=== PATIENT | male | born 1940 | race Caucasian/White ===

== ENCOUNTER → 2020-05-02 14:43 | Outpatient (BNVA) | payer MEDICARE, SELFPAY | PROVIDERS: Visit Provider Urology | DX: Z13.89 Encounter for screening for other disorder (principal) | CPT/HCPCS: Q3014 ==

== ENCOUNTER → 2020-11-15 15:03 | Outpatient (BNVA) | payer MEDICARE, BC, SELFPAY | PROVIDERS: Visit Provider Urology | DX: N28.1 Cyst of kidney, acquired (principal); N40.1 Benign prostatic hyperplasia with lower urinary tract symptoms; N13.8 Other obstructive and reflux uropathy; R97.20 Elevated prostate specific antigen [PSA]; E78.5 Hyperlipidemia, unspecified; M81.0 Age-related osteoporosis without current pathological fracture; Z88.1 Allergy status to other antibiotic agents; Z88.8 Allergy status to other drugs, medicaments and biological substances | CPT/HCPCS: 51798; 99212 ==

== ENCOUNTER → 2021-05-16 13:31 | Outpatient (BNVA) | payer MEDICARE, BC, SELFPAY | PROVIDERS: PCP Internal Medicine; Visit Provider Urology | DX: N40.1 Benign prostatic hyperplasia with lower urinary tract symptoms (principal); N13.8 Other obstructive and reflux uropathy; N21.0 Calculus in bladder; I25.10 Atherosclerotic heart disease of native coronary artery without angina pectoris; E78.5 Hyperlipidemia, unspecified; Z88.1 Allergy status to other antibiotic agents; Z88.8 Allergy status to other drugs, medicaments and biological substances | CPT/HCPCS: 99212 ==

== ENCOUNTER → 2021-11-16 11:39 | Outpatient (BNVA) | payer MEDICARE, BC, SELFPAY | PROVIDERS: PCP Internal Medicine; Visit Provider Urology | DX: N28.1 Cyst of kidney, acquired (principal); N40.1 Benign prostatic hyperplasia with lower urinary tract symptoms; N13.8 Other obstructive and reflux uropathy; Z79.899 Other long term (current) drug therapy | CPT/HCPCS: Q3014 ==

== ENCOUNTER 2023-02-12 11:03 | Outpatient (AMB) | payer MEDICARE, BC, SELFPAY ==
--- NOTE | 2023-02-12 11:27 | A.OFFVIS_ITS ---
Intake Intake Visit Reasons: 1Y US/PSA(set) Intake Note: Patient is Present for Follow Up Urology Medication: Finasteride, Antibiotic Allergies: Erythromycin Blood Thinners: None PVR: Compliants: Allergies erythromycin base Allergy (Unknown, Verified 11/16/21 11:43) UNKNOWN mometasone furoate Allergy (Unknown, Verified 11/16/21 11:43) UNKNOWN HPI HPI Comments History of Present Illness Details Rico is a male. He is a patient of Dr Vines. He returns for further evaluation of the following urologic issues. - lower urinary tract symptoms - complex renal cyst Yearly review Accompanied by Low PVR PSA 1.7 Continues with finasteride every other day Imaging from November shows bilateral renal cyst with small stones bladder. Discussed GreenLight laser of prostate with bladder stone removal He is interested in moving ahead Elevated PSA/Abnormal MICHAELLE: Stable while on finasteride Current management is medication with 5AR M/W/F. Laboratory investigations include August 2014 4.1 PSAs have been in the range 2.4-3.4 over the past 5 years. TRUS biopsy has been offered previously. Oct 2015 4.2, free 23%, August 2016 2.0 - 09/16 US with 150cc prostate, 09/17 1.7, 10/19 US with 150cc prostate - bladder stones, 04/22 1.5, 10/21 1.8, 11/22 1.8 Symptoms include frequency, weak stream, x 2 Overall symptoms are moderate Therapeutic plan will be continued surveillance. Renal lesion: They present for reevaluation of renal mass characterized as, right side, simple cyst. The renal mass was diagnosed incidentally July 2013. Imaging included a CT (computed tomography) scan of the abdomen/pelvis July 2013 7.4 cm right-sided cyst with thickening of the wall and mild calcification , an MRI of the abdomen October 2014 no change in lesion size or characteristics multiple bilateral cysts. Dominant cyst on the right side - 10/16 a renal ultrasound , multiple bilateral cysts. Right kidney 5.6 cm, left kidney 4 cm. Thin septations - 04/19 , an MRI of the abdomen - bilateral cysts, no progression - 10/17 bilateral renal cysts. Right cyst 6 cm - 10/18 , a renal ultrasound - bilateral cysts - 10/19 , a renal ultrasound - large bilateral cysts - 04/23 renal bladder ultrasound, large bilateral renal cysts, bladder debris - 04/24 renal ultrasound large bilateral cysts up to 6 cm, bladder emptying Follow up imaging includes renal US. [facility] Medical History Osteoporosis Hyperlipidemia Coronary artery disease Gross hematuria Bladder stone Complex renal cyst Incomplete emptying of bladder Weak urinary stream Nocturia BPH w/o urinary obs/LUTS Elevated PSA Surgical History History of surgery History of surgical procedure Review of Systems Const Denies chills and Denies fever(s) Card Reports no additional complaints and Denies syncope Resp Denies cough GI Denies abdominal pain and Denies heartburn Reports as per HPI and Denies change in libido Neuro Denies syncope Psych Denies change in libido Endo Denies change in libido Physical Exam Const General: cooperative, healthy appearing, comfortable and no acute distress Orientation/consciousness: patient oriented x3 HEENT Face and sinus: Yes normal facial exam Mouth: moist mucous membranes Neck Neck: Yes normal visual inspection, Yes full ROM and Yes trachea midline Chest Chest palpation & inspection: normal inspection of the chest Resp Effort & Inspection: normal respiratory effort, able to speak in complete sentences and no respiratory distress GI Inspection: Yes normal to inspection Back/Spine/Pelvis Cervical Spine: normal cervical lordosis Thoracic/Lumbar Spine: thoracic and lumbar spine normal to inspection Skin General skin exam: no rashes or lesions noted Neuro General: patient oriented x3, gait normal, tone normal and moves all extremities Extrem General: Yes normal to inspection and Yes capillary refill normal Assessment & Plan Assessment & Plan (1) Bladder stone: Code(s): N21.0 - Calculus in bladder (2) BPH w urinary obs/LUTS: Code(s): N40.1 - Benign prostatic hyperplasia with lower urinary tract symptoms; N13.8 - Other obstructive and reflux uropathy Plan Six month follow-up PVR Orders: Orders AMB Urinalysis Automated 02/12/23 Z13.9 - Encounter for screening, unspecified AMB Post Void Residual by ultrasound 02/12/23 N13.8 - Other obstructive and reflux uropathy, N40.1 - Benign prostatic hyperplasia with lower urinary tract symptoms Patient Instructions: Imaging studies, laboratory and physical exam results were discussed and reviewed in detail. No major barriers to patient understanding were identified. An opportunity to ask questions regarding the treatment plan was provided. All questions were answered. The patient expressed understanding and agreement with the above treatment plan. The patient is aware they should contact our office by phone for worsening of their current condition or the appearance of new urologic symptoms. Compliance is encouraged with any medications and followup testing that is ordered. It is a privilege to participate in the urologic care of your patient. If you have any questions or concerns regarding treatment for the above conditions, or other urologic issues, please do not hesitate to contact me. The office telephone contact is [phone]. This note is constructed using voice recognition software. While every effort has been made to ensure accuracy supercharger mechanic errors may have been included. Yours sincerely, Dr Costa Whelan MD, [facility] - Urology Providers of Expert, Compassionate Care for the Genitourinary System Coding Level of Care Code Est Pt Level 4 (16460) Diagnoses Bladder stone N21.0 BPH w urinary obs/LUTS N40.1; N13.8
== END 2023-02-12 11:57 | disposition home or self-care (01) ==
PROVIDERS: Visit Provider Urology
DX: N21.0 Calculus in bladder (principal); N40.1 Benign prostatic hyperplasia with lower urinary tract symptoms; N13.8 Other obstructive and reflux uropathy
CPT/HCPCS: 99214

== ENCOUNTER → 2023-02-12 11:03 | Outpatient (BNVA) | payer MEDICARE, BC, SELFPAY | PROVIDERS: Visit Provider Urology | DX: N21.0 Calculus in bladder (principal); N40.1 Benign prostatic hyperplasia with lower urinary tract symptoms; N13.8 Other obstructive and reflux uropathy | CPT/HCPCS: 99212 ==

== ENCOUNTER 2023-08-13 11:55 | Outpatient (AMB) | payer MEDICARE, BC, SELFPAY ==
--- NOTE | 2023-08-13 12:00 | MHC.OFFVIS ---
Intake Visit Reasons: 6m/PVR Intake Note: Patient is Present for PVR/ Urology Med: Finasteride Antibiotic Allergy: Erythromycin Blood Thinner: None Todays PVR:18 Allergies erythromycin base Allergy (Unknown, Verified 08/13/23 12:05) UNKNOWN mometasone furoate Allergy (Unknown, Verified 08/13/23 12:05) UNKNOWN HPI Comments Details: Rico is a male. He is a patient of Dr Vines. He returns for further evaluation of the following urologic issues. - lower urinary tract symptoms - complex renal cyst Yearly review Accompanied by PVR 20 cc PSA 1.7 Continues with finasteride every other day Imaging from November shows bilateral renal cyst with small stones bladder. Discussed GreenLight laser of prostate with bladder stone removal He is interested in moving ahead Elevated PSA/Abnormal MICHAELLE: Stable while on finasteride Current management is medication with 5AR M/W/F. Laboratory investigations include August 2014 4.1 PSAs have been in the range 2.4-3.4 over the past 5 years. TRUS biopsy has been offered previously. Oct 2015 4.2, free 23%, August 2016 2.0 - 09/16 US with 150cc prostate, 09/17 1.7, 10/19 US with 150cc prostate - bladder stones, 04/22 1.5, 10/21 1.8, 11/22 1.8 Symptoms include frequency, weak stream, x 2 Overall symptoms are moderate Therapeutic plan will be continued surveillance. Renal lesion: They present for reevaluation of renal mass characterized as, right side, simple cyst. The renal mass was diagnosed incidentally July 2013. Imaging included a CT (computed tomography) scan of the abdomen/pelvis July 2013 7.4 cm right-sided cyst with thickening of the wall and mild calcification , an MRI of the abdomen October 2014 no change in lesion size or characteristics multiple bilateral cysts. Dominant cyst on the right side - 10/16 a renal ultrasound , multiple bilateral cysts. Right kidney 5.6 cm, left kidney 4 cm. Thin septations - 04/19 , an MRI of the abdomen - bilateral cysts, no progression - 10/17 bilateral renal cysts. Right cyst 6 cm - 10/18 , a renal ultrasound - bilateral cysts - 10/19 , a renal ultrasound - large bilateral cysts - 04/23 renal bladder ultrasound, large bilateral renal cysts, bladder debris - 04/24 renal ultrasound large bilateral cysts up to 6 cm, bladder emptying Follow up imaging includes renal US. [facility] Medical History Osteoporosis Hyperlipidemia Coronary artery disease Gross hematuria Bladder stone Complex renal cyst Incomplete emptying of bladder Weak urinary stream Nocturia BPH w/o urinary obs/LUTS Elevated PSA Surgical History History of surgery History of surgical procedure Review of Systems Const Denies chills and Denies fever(s) Card Reports no additional complaints and Denies syncope Resp Denies cough GI Denies abdominal pain and Denies heartburn Reports as per HPI and Denies change in libido Neuro Denies syncope Psych Denies change in libido Endo Denies change in libido Physical Exam Const General: cooperative, healthy appearing, comfortable and no acute distress Orientation/consciousness: patient oriented x3 HEENT Face and sinus: Yes normal facial exam Mouth: moist mucous membranes Neck Neck: Yes normal visual inspection, Yes full ROM and Yes trachea midline Chest Chest palpation & inspection: normal inspection of the chest Resp Effort & Inspection: normal respiratory effort, able to speak in complete sentences and no respiratory distress GI Inspection: Yes normal to inspection Back/Spine/Pelvis Cervical Spine: normal cervical lordosis Thoracic/Lumbar Spine: thoracic and lumbar spine normal to inspection Skin General skin exam: no rashes or lesions noted Neuro General: patient oriented x3, gait normal, tone normal and moves all extremities Extrem General: Yes normal to inspection and Yes capillary refill normal Office Procedures Post Void Residual Post Residual Void Post Void Residual (PVR): 18 [id number] Void Residual by ultrasound Assessment & Plan Assessment & Plan (1) Bladder stone: Code(s): N21.0 - Calculus in bladder Category: Medical (2) Complex renal cyst: Code(s): N28.1 - Cyst of kidney, acquired Category: Medical (3) BPH w urinary obs/LUTS: Code(s): N40.1 - Benign prostatic hyperplasia with lower urinary tract symptoms; N13.8 - Other obstructive and reflux uropathy Category: Medical Plan Six-month follow-up imaging Orders: Orders AMB Post Void Residual by ultrasound 08/13/23 N40.1 - Benign prostatic hyperplasia with lower urinary tract symptoms, N13.8 - Other obstructive and reflux uropathy US renal BI 6 Months N28.1 - Cyst of kidney, acquired Patient Instructions: Imaging studies, laboratory and physical exam results were discussed and reviewed in detail. No major barriers to patient understanding were identified. An opportunity to ask questions regarding the treatment plan was provided. All questions were answered. The patient expressed understanding and agreement with the above treatment plan. The patient is aware they should contact our office by phone for worsening of their current condition or the appearance of new urologic symptoms. Compliance is encouraged with any medications and followup testing that is ordered. It is a privilege to participate in the urologic care of your patient. If you have any questions or concerns regarding treatment for the above conditions, or other urologic issues, please do not hesitate to contact me. The office telephone contact is [phone]. This note is constructed using voice recognition software. While every effort has been made to ensure accuracy project consultant errors may have been included. Yours sincerely, Dr Costa Whelan MD, [facility] - Urology Providers of Expert, Compassionate Care for the Genitourinary System Coding Level of Care Code Est Pt Level 3 (33859) Diagnoses Bladder stone N21.0 Complex renal cyst N28.1 BPH w urinary obs/LUTS N40.1; N13.8 CPT Codes Post Residual Void - PVR CPT Code: [id number] Void Residual by ultrasound ([id number])
== END 2023-08-13 12:27 | disposition home or self-care (01) ==
PROVIDERS: PCP Internal Medicine; Visit Provider Urology
DX: N21.0 Calculus in bladder (principal); N28.1 Cyst of kidney, acquired; N40.1 Benign prostatic hyperplasia with lower urinary tract symptoms; N13.8 Other obstructive and reflux uropathy
CPT/HCPCS: 99213

== ENCOUNTER → 2023-08-13 11:55 | Outpatient (BNVA) | payer MEDICARE, BC, SELFPAY | PROVIDERS: PCP Internal Medicine; Visit Provider Urology | DX: N40.1 Benign prostatic hyperplasia with lower urinary tract symptoms (principal); N13.8 Other obstructive and reflux uropathy; N28.1 Cyst of kidney, acquired | CPT/HCPCS: 51798; 99212 ==

== ENCOUNTER 2024-02-10 11:48 | Outpatient (AMB) | payer MEDICARE, BC, SELFPAY ==
--- NOTE | 2024-02-10 11:49 | A.OFFVIS_ITS ---
Intake Visit Reasons: 6m/US(set) Intake Note: Patient is present for 6M/US Urology Medication:FINASTREIDE Antibiotic Allergy:ERYTHROMYCIN Blood Thinner:NONE Gas Engine Operator Compressors Required: No Allergies erythromycin base Allergy (Unknown, Verified 02/10/24 11:49) UNKNOWN mometasone furoate Allergy (Unknown, Verified 02/10/24 11:49) UNKNOWN HPI Comments Details: Rico is a male. He is a patient of Dr Vines. He returns for further evaluation of the following urologic issues. - lower urinary tract symptoms - complex renal cyst Yearly review Accompanied by Discussed renal cyst Remain stable but large Thickened bladder wall Previous discussion regarding bladder outlet procedure UA 1+ blood Repeat imaging in UA in six-month Elevated PSA/Abnormal MICHAELLE: Stable while on finasteride Current management is medication with 5AR M/W/F. Laboratory investigations include August 2014 4.1 PSAs have been in the range 2.4-3.4 over the past 5 years. TRUS biopsy has been offered previously. Oct 2015 4.2, free 23%, August 2016 2.0 - 09/16 US with 150cc prostate, 09/17 1.7, 10/19 US with 150cc prostate - bladder stones, 04/22 1.5, 10/21 1.8, 11/22 1.8 Symptoms include frequency, weak stream, x 2 Overall symptoms are moderate Therapeutic plan will be continued surveillance. Renal lesion: They present for reevaluation of renal mass characterized as, right side, simple cyst. The renal mass was diagnosed incidentally July 2013. Imaging included a CT (computed tomography) scan of the abdomen/pelvis July 2013 7.4 cm right-sided cyst with thickening of the wall and mild calcification , an MRI of the abdomen October 2014 no change in lesion size or charac teristics multiple bilateral cysts. Dominant cyst on the right side - 10/16 a renal ultrasound , multiple bilateral cysts. Right kidney 5.6 cm, left kidney 4 cm. Thin septations - 04/19 , an MRI of the abdomen - bilateral cysts, no progression - 10/17 bilateral renal cysts. Right cyst 6 cm - 10/18 , a renal ultrasound - bilateral cysts - 10/19 , a renal ultrasound - large bilateral cysts - 04/23 renal bladder ultrasound, large bilateral renal cysts, bladder debris - 04/24 renal ultrasound large bilateral cysts up to 6 cm, bladder emptying - 12/24 RENAL ULTRASOUND BILATERAL CYSTS, EMPTY BLADDER, THICKENED BLADDER WALL WITH TRABECULATION Follow up imaging includes renal US. [facility] Medical History Osteoporosis Hyperlipidemia Coronary artery disease Gross hematuria Bladder stone Complex renal cyst Incomplete emptying of bladder Weak urinary stream Nocturia BPH w/o urinary obs/LUTS Elevated PSA Surgical History History of surgery History of surgical procedure Review of Systems Const Denies chills and Denies fever(s) Card Reports no additional complaints and Denies syncope Resp Denies cough GI Denies abdominal pain and Denies heartburn Reports as per HPI and Denies change in libido Neuro Denies syncope Psych Denies change in libido Endo Denies change in libido Physical Exam Const General: cooperative, healthy appearing, comfortable and no acute distress Orientation/consciousness: patient oriented x3 HEENT Face and sinus: Yes normal facial exam Mouth: moist mucous membranes Neck Neck: Yes normal visual inspection, Yes full ROM and Yes trachea midline Chest Chest palpation & inspection: normal inspection of the chest Resp Effort & Inspection: normal respiratory effort, able to speak in complete sentences and no respiratory distress GI Inspection: Yes normal to inspection Back/Spine/Pelvis Cervical Spine: normal cervical lordosis Thoracic/Lumbar Spine: thoracic and lumbar spine normal to inspection Skin General skin exam: no rashes or lesions noted Neuro General: patient oriented x3, gait normal, tone normal and moves all extremities Extrem General: Yes normal to inspection and Yes capillary refill normal Results AMB Urinalysis, Automated UA Leukoctes 0 Magen/uL Last Edit by NAE Lanier on 02/10/24 12:03 UA Nitrite Negative Last Edit by NAE Lanier on 02/10/24 12:03 UA Urobilinogen 0.2 mg/dL Last Edit by NAE Lanier on 02/10/24 12:0 3 UA Protein 30 mg/dL Last Edit by NAE Lanier on 02/10/24 12:03 UA pH 6.0 Last Edit by NAE Lanier on 02/10/24 12:03 UA Blood 25 Pete/uL Last Edit by NAE Lanier on 02/10/24 12:03 UA Specific [place] 1.020 Last Edit by Sivan Morrison CCMA on 02/10/24 12: 03 UA Ketone Negative Last Edit by NAE Lanier on 02/10/24 12:03 UA Bilirubin 0 mg/dL Last Edit by NAE Lanier on 02/10/24 12:03 UA Glucose 0 mg/dL Last Edit by NAE Lanier on 02/10/24 12:03 Results Reviewed Results Reviewed: Laboratory Last Values Urine pH (Auto) 6.0 02/10/24 12:02 Specific [place] (Auto) 1.020 02/10/24 12:02 Urine Protein (Auto) 30 mg/dL 02/10/24 12:02 Glucose (UA)(Auto) 0 mg/dL 02/10/24 12:02 Urine Ketones (Auto) Negative 02/10/24 12:02 Urine Blood (Auto) 25 Pete/uL 02/10/24 12:02 Urine Nitrite (Auto) Negative 02/10/24 12:02 Urine Bilirubin (Auto) 0 mg/dL 02/10/24 12:02 Urine Urobilinogen (Auto) 0.2 mg/dL 02/10/24 12:02 Leukocyte Esterase (Auto) 0 Magen/uL 02/10/24 12:02 Assessment & Plan Assessment & Plan (1) Complex renal cyst: Code(s): N28.1 - Cyst of kidney, acquired Category: Medical Plan Six-month follow-up renal ultrasound Orders: Orders AMB Urinalysis Automated 02/10/24 Z13.9 - Encounter for screening, unspecified US renal BI 6 Months N28.1 - Cyst of kidney, acquired Patient Instructions: Imaging studies, laboratory and physical exam results were discussed and reviewed in detail. No major barriers to patient understanding were identified. An opportunity to ask questions regarding the treatment plan was provided. All questions were answered. The patient expressed understanding and agreement with the above treatment plan. The patient is aware they should contact our office by phone for worsening of their current condition or the appearance of new urologic symptoms. Compliance is encouraged with any medications and followup testing that is ordered. It is a privilege to participate in the urologic care of your patient. If you have any questions or concerns regarding treatment for the above conditions, or other urologic issues, please do not hesitate to contact me. The office telephone contact is [phone]. This note is constructed using voice recognition software. While every effort has been made to ensure accuracy product safety head errors may have been included. Yours sincerely, Dr Costa Whelan MD, [facility] - Urology Providers of Expert, Compassionate Care for the Genitourinary System Coding Level of Care Code Est Pt Level 4 (49788) Diagnoses Complex renal cyst N28.1
== END 2024-02-10 13:03 | disposition home or self-care (01) ==
PROVIDERS: PCP Internal Medicine; Visit Provider Urology
DX: N28.1 Cyst of kidney, acquired (principal)
CPT/HCPCS: 99214

== ENCOUNTER → 2024-02-10 11:48 | Outpatient (BNVA) | payer MEDICARE, BC, SELFPAY | PROVIDERS: PCP Internal Medicine; Visit Provider Urology | DX: N28.1 Cyst of kidney, acquired (principal) | CPT/HCPCS: 81003; 99212 ==

== ENCOUNTER 2024-08-10 11:36 | Outpatient (AMB) | payer MEDICARE, BC, SELFPAY ==
--- NOTE | 2024-08-10 11:38 | MHC.OFFVIS ---
Intake Visit Reasons: 6m/US/UA Intake Note: Patient is present for 6M/US/UA Urology Medication:FINASTERIDE Antibiotic Allergy:ERYTHROMYCIN Blood Thinner:NONE TODAY'SA PVR:123ML'S Forensic Specialist Required: No Allergies erythromycin base Allergy (Unknown, Verified 08/10/24 11:58) UNKNOWN mometasone furoate Allergy (Unknown, Verified 08/10/24 11:58) UNKNOWN HPI Comments Details: Rico is a male. He is a patient of Dr Vines. He returns for further evaluation of the following urologic issues. - lower urinary tract symptoms - complex renal cyst Six-month follow-up PVR remains elevated 160 Discussed renal cyst Remain stable but large Thickened bladder wall Previous discussion regarding bladder outlet procedure Provided printed information to Recent ultrasound prostate 135 cc Elevated PSA/Abnormal MICHAELLE: Stable while on finasteride Current management is medication with 5AR M/W/F. Laboratory investigations include August 2014 4.1 PSAs have been in the range 2.4-3.4 over the past 5 years. TRUS biopsy has been offered previously. Oct 2015 4.2, free 23%, August 2016 2.0 - 09/16 US with 150cc prostate, 09/17 1.7, 10/19 US with 150cc prostate - bladder stones, 04/22 1.5, 10/21 1.8, 11/22 1.8 Symptoms include frequency, weak stream, x 2 Overall symptoms are moderate Therapeutic plan will be continued surveillance. Renal lesion: They present for reevaluation of renal mass characterized as, right side, simple cyst. The renal mass was diagnosed incidentally July 2013. Imaging included a CT (computed tomography) scan of the abdomen/pelvis July 2013 7.4 cm right-sided cyst with thickening of the wall and mild calcification , an MRI of the abdomen October 2014 no change in lesion size or characteristics multiple bilateral cysts. Dominant cyst on the right side - 10/16 a renal ultrasound , multiple bilateral cysts. Right kidney 5.6 cm, left kidney 4 cm. Thin septations - 04/19 , an MRI of the abdomen - bilateral cysts, no progression - 10/17 bilateral renal cysts. Right cyst 6 cm - 10/18 , a renal ultrasound - bilateral cysts - 10/19 , a renal ultrasound - large bilateral cysts - 04/23 renal bladder ultrasound, large bilateral renal cysts, bladder debris - 04/24 renal ultrasound large bilateral cysts up to 6 cm, bladder emptying - 12/24 RENAL ULTRASOUND BILATERAL CYSTS, EMPTY BLADDER, THICKENED BLADDER WALL WITH TRABECULATION - 08/25 renal ultrasound stable bilateral cysts up to 8 cm, 135 g prostate Follow up imaging includes renal US. PENDING SALE TO [facility] Medical History Osteoporosis Hyperlipidemia Coronary artery disease Gross hematuria Bladder stone Complex renal cyst Incomplete emptying of bladder Weak urinary stream Nocturia BPH w/o urinary obs/LUTS Elevated PSA Surgical History History of surgery History of surgical procedure Review of Systems Const Denies chills and Denies fever(s) Card Reports no additional complaints and Denies syncope Resp Denies cough GI Denies abdominal pain and Denies heartburn Reports as per HPI and Denies change in libido Neuro Denies syncope Psych Denies change in libido Endo Denies change in libido Physical Exam Const General: cooperative, healthy appearing, comfortable and no acute distress Orientation/consciousness: patient oriented x3 HEENT Face and sinus: Yes normal facial exam Mouth: moist mucous membranes Neck Neck: Yes normal visual inspection, Yes full ROM and Yes trachea midline Chest Chest palpation & inspection: normal inspection of the chest Resp Effort & Inspection: normal respiratory effort, able to speak in complete sentences and no respiratory distress GI Inspection: Yes normal to inspection Back/Spine/Pelvis Cervical Spine: normal cervical lordosis Thoracic/Lumbar Spine: thoracic and lumbar spine normal to inspection Skin General skin exam: no rashes or lesions noted Neuro General: patient oriented x3, gait normal, tone normal and moves all extremities Extrem General: Yes normal to inspection and Yes capillary refill normal Assessment & Plan Assessment & Plan (1) BPH w urinary obs/LUTS: Code(s): N40.1 - Benign prostatic hyperplasia with lower urinary tract symptoms; N13.8 - Other obstructive and reflux uropathy Category: Medical (2) Complex renal cyst: Code(s): N28.1 - Cyst of kidney, acquired Category: Medical Plan Discussed GreenLight laser He will contact us Orders: Orders AMB Urinalysis Automated Today Z13.9 - Encounter for screening, unspecified Patient Instructions: This note is constructed using voice recognition software. While every effort has been made to ensure accuracy environmental aide errors may have been included. Imaging studies, laboratory and physical exam results were discussed and reviewed in detail. No major barriers to patient understanding were identified. An opportunity to ask questions regarding the treatment plan was provided. All questions were answered. The patient expressed understanding and agreement with the above treatment plan. The patient is aware they should contact our office by phone for worsening of their current condition or the appearance of new urologic symptoms. Compliance is encouraged with any medications and followup testing that is ordered. It is a privilege to participate in the urologic care of your patient. If you have any questions or concerns regarding treatment for the above conditions, or other urologic issues, please do not hesitate to contact me. The office telephone contact is [phone]. Sincerely, Dr Costa Whelan MD, TUCKER [facility] - Urology Compassionate Specialist Care for the Genitourinary System Coding Level of Care Code Est Pt Level 3 (24818) Complex EM visit Add On G2211 Diagnoses BPH w urinary obs/LUTS N40.1; N13.8 Complex renal cyst N28.1
== END 2024-08-10 12:21 | disposition home or self-care (01) ==
LOC: HO.HUSH 11:37
PROVIDERS: PCP Internal Medicine; Visit Provider Urology
DX: N40.1 Benign prostatic hyperplasia with lower urinary tract symptoms (principal); N13.8 Other obstructive and reflux uropathy; N28.1 Cyst of kidney, acquired; Z13.9 Encounter for screening, unspecified
CPT/HCPCS: 99213; G2211

== ENCOUNTER → 2024-08-10 11:36 | Outpatient (BNVA) | payer MEDICARE, BC, SELFPAY | PROVIDERS: PCP Internal Medicine; Visit Provider Urology | DX: N40.1 Benign prostatic hyperplasia with lower urinary tract symptoms (principal); N13.8 Other obstructive and reflux uropathy; N28.1 Cyst of kidney, acquired | CPT/HCPCS: 81003; 99212 ==

== ENCOUNTER 2025-01-19 13:46 | Outpatient (AMB) | payer MEDICARE, BC, SELFPAY ==
--- OUTSIDE RECORDS SUMMARY | 2024-11-10 03:29 | XMS_ITS ---
Author Organization [facility] Address [address], [place] [phone] Care Team Providers Care Yard Spotter Name Role Phone OLU DOOLEY Primary Care Provider REASON FOR VISIT Requesting Order Encounters Encounter Location Date Provider Diagnosis [facility] [address] [place] [address] 11/10/2024 OLU DOOLEY PLAN OF TREATMENT Next Appt Details Provider Name:OLU Cavanaugh, 03/31/2025 01:00:00 PM, [address] [place], [address],
--- OUTSIDE RECORDS SUMMARY | 2024-11-15 06:55 | XMS_ITS ---
Author Organization [facility] Address [address] [place], [place] [id number] Care Team Providers Care Civil Process Server Name Role Phone OLU DOOLEY Primary Care Provider REASON FOR VISIT hematuria Encounters Encounter Location Date Provider Diagnosis [facility] [address] [place] [address] 11/15/2024 OLU DOOLEY PLAN OF TREATMENT Next Appt Details Provider Name:OLU Cavanaugh, 03/31/2025 01:00:00 PM, [address] [place], [address],
--- OUTSIDE RECORDS SUMMARY | 2024-11-15 09:46 | XMS_ITS ---
Author Organization [facility] Address [address] [place], [place] [id number] Care Team Providers Care Apparel Sales Associate Name Role Phone OLU DOOLEY Primary Care Provider REASON FOR VISIT labs/urine Encounters Encounter Location Date Provider Diagnosis [address] [address] 11/15/2024 OLU DOOLEY Gross hematuria R31.0 ASSESSMENTS Encounter Date Diagnosis Assessment Notes Treatment Notes Treatment Clinical Notes Section Notes 11/15/2024 Gross hematuria (ICD-10 - R31.0) PLAN OF TREATMENT Future Test Test Name Order Date CBC With Differential/[id number] Comp. Metabolic Panel [id number] 2024 Next Appt Details Provider Name:OLU Cavanaugh, 03/31/2025 01:00:00 PM, [address] [place], [address],
--- OUTSIDE RECORDS SUMMARY | 2024-11-15 10:00 | XMS_ITS ---
Author Organization [facility] Address [address] [place], [place] [phone] Care Team Providers Care Sap Grc Security Name Role Phone OLU DOOLEY Primary Care Provider [phone] REASON FOR VISIT u/s results Encounters Encounter Location Date Provider Diagnosis [facility] [address] [place] [address] 11/15/2024 OLU DOOLEY PLAN OF TREATMENT Next Appt Details Provider Name:OLU Cavanaugh, 03/31/2025 01:00:00 PM, [address] [place], [address],
--- OUTSIDE RECORDS SUMMARY | 2024-11-15 11:59 | XMS_ITS ---
Author Organization [facility] Address [address] [place], [place] [phone] Care Team Providers Care Director Of Pulmonary Unit Name Role Phone OLU DOOLEY Primary Care Provider [phone] Encounters Encounter Location Date Provider Diagnosis [address] [address] 11/15/2024 OLU DOOLEY PLAN OF TREATMENT Next Appt Details Provider Name:OLU Cavanaugh, 03/31/2025 01:00:00 PM, [address] [place], [address],
--- OUTSIDE RECORDS SUMMARY | 2024-11-16 11:10 | XMS_ITS ---
Author Organization [facility] Address [address] [place], [place] [phone] Care Team Providers Care Customs Director Name Role Phone OLU DOOLEY Primary Care Provider Encounters Encounter Location Date Provider Diagnosis [address] [address] 11/16/2024 OLU DOOLEY Essential (primary) hypertension I10 ASSESSMENTS Encounter Date Diagnosis Assessment Notes Treatment Notes Treatment Clinical Notes Section Notes 11/16/2024 Essential (primary) hypertension (ICD-10 - I10) PLAN OF TREATMENT Next Appt Details Provider Name:OLU Cavanaugh, 03/31/2025 01:00:00 PM, [address] [place] [address], [address],
--- OUTSIDE RECORDS SUMMARY | 2024-11-30 07:45 | XMS_ITS ---
Author Organization [facility] Address [address] [place], [place] [phone] Care Team Providers Care Metal Hanging Helper Name Role Phone OLU DOOLEY Primary Care Provider MEDICATIONS Medication SIG (Take, Route, Frequency, Duration) Notes Start Date End Date Status Sodium Polystyrene Sulfonate 15 GM/60ML 60 mL Combination Once a day 11/30/2024 Active Encounters Encounter Location Date Provider Diagnosis [facility] [address] [place] [address] 11/30/2024 OLU DOOLEY Essential (primary) hypertension I10 ASSESSMENTS Encounter Date Diagnosis Assessment Notes Treatment Notes Treatment Clinical Notes Section Notes 11/30/2024 Essential (primary) hypertension (ICD-10 - I10) PLAN OF TREATMENT Medication Medication Name Sig Start Date Stop Date Notes Sodium Polystyrene Sulfonate 15 GM/60ML 60 mL Combination Once a day 11/30/2024 Next Appt Details Provider Name:OLU Cavanaugh, 03/31/2025 01:00:00 PM, [address] [place], [address],
--- OUTSIDE RECORDS SUMMARY | 2024-11-30 08:26 | XMS_ITS ---
Author Organization [facility] Address [address] [place], [place] [phone] Care Team Providers Care Textile Coating Machine Operator Name Role Phone OLU DOOLEY Primary Care Provider [phone] REASON FOR VISIT celebrex Encounters Encounter Location Date Provider Diagnosis [facility] [address] [place] [address] 11/30/2024 OLU DOOLEY PLAN OF TREATMENT Next Appt Details Provider Name:OLU Cavanaugh, 03/31/2025 01:00:00 PM, [address] [place], [address],
--- OUTSIDE RECORDS SUMMARY | 2024-12-04 05:00 | XMS_ITS ---
Author Organization [facility] Address [address] [place], [place] [phone] Care Team Providers Care Education Faculty Member Name Role Phone OLU DOOLEY Primary Care Provider CLINIC, [facility] Unavailable Unavailable REASON FOR VISIT N/27 Encounters Encounter Location Date Provider Diagnosis [facility] [address] [place] [address] 12/04/2024 [facility] CLINIC PLAN OF TREATMENT Next Appt Details Provider Name:OLU Cavanaugh, 03/31/2025 01:00:00 PM, [address] [place], [address],
--- OUTSIDE RECORDS SUMMARY | 2024-12-27 11:11 | XMS_ITS ---
Author Organization [facility] Address [address] [place], [place] [phone] Care Team Providers Care Sleever Name Role Phone OLU DOOLEY Primary Care Provider REASON FOR VISIT CT scan with iv Encounters Encounter Location Date Provider Diagnosis [address] [address] 12/27/2024 OLU DOOLEY PLAN OF TREATMENT Next Appt Details Provider Name:OUL Cavanaugh, 03/31/2025 01:00:00 PM, [address] [place], [address],
--- NOTE | 2025-01-19 14:01 | A.OFFVIS_ITS ---
Intake Visit Reasons: discuss procedure Intake Note: Reason for Visit: Telephone Discussion on Greenlight Procedure Urology Meds: Finasteride Blood Thinners: None Imaging: Renal Ultrasound 11/16/24 Labs: None Wind Turbine Mechanical Engineer Required: No Allergies erythromycin base Allergy (Unknown, Verified 01/19/25 14:04) UNKNOWN mometasone furoate Allergy (Unknown, Verified 01/19/25 14:04) UNKNOWN HPI Comments Details: Rico is a male. He is a patient of Dr Vines. He returns for further evaluation of the following urologic issues. - lower urinary tract symptoms - complex renal cyst Telemedicine Evaluation 15 min Consultation BiOxyDyn Heather Video Moving ahead with GreenLight laser Repeat imaging shows stable renal cysts Thickened bladder wall Prostate measured at 100 cc Discussed risks and benefits of surgery Elevated PSA/Abnormal MICHAELLE: Stable while on finasteride Current management is medication with 5AR M/W/F. Laboratory investigations include August 2014 4.1 PSAs have been in the range 2.4-3.4 over the past 5 years. TRUS biopsy has been offered previously. Oct 2015 4.2, free 23%, August 2016 2.0 - 09/16 US with 150cc prostate, 09/17 1.7, 10/19 US with 150cc prostate - bladder stones, 04/22 1.5, 10/21 1.8, 11/22 1.8 Symptoms include frequency, weak stream, x 2 Overall symptoms are moderate Therapeutic plan will be continued surveillance. Renal lesion: They present for reevaluation of renal mass characterized as, right side, simple cyst. The renal mass was diagnosed incidentally July 2013. Imaging included a CT (computed tomography) scan of the abdomen/pelvis July 2013 7.4 cm right-sided cyst with thickening of the wall and mild calcification , an MRI of the abdomen October 2014 no change in lesion size or characteristics multiple bilateral cysts. Dominant cyst on the right side - 10/16 a renal ultrasound , multiple bilateral cysts. Right kidney 5.6 cm, left kidney 4 cm. Thin septations - 04/19 , an MRI of the abdomen - bilateral cysts, no progression - 10/17 bilateral renal cysts. Right cyst 6 cm - 10/18 , a renal ultrasound - bilateral cysts - 10/19 , a renal ultrasound - large bilateral cysts - 04/23 renal bladder ultrasound, large bilateral renal cysts, bladder debris - 04/24 renal ultrasound large bilateral cysts up to 6 cm, bladder emptying - 12/24 RENAL ULTRASOUND BILATERAL CYSTS, EMPTY BLADDER, THICKENED BLADDER WALL WITH TRABECULATION - 08/25 renal ultrasound stable bilateral cysts up to 8 cm, 135 g prostate Follow up imaging includes renal US. [facility] Medical History Osteoporosis Hyperlipidemia Coronary artery disease Gross hematuria Bladder stone Complex renal cyst Incomplete emptying of bladder Weak urinary stream Nocturia BPH w/o urinary obs/LUTS Elevated PSA Surgical History History of surgery History of surgical procedure Review of Systems Const Denies chills and Denies fever(s) Card Reports no additional complaints and Denies syncope Resp Denies cough GI Denies abdominal pain and Denies heartburn Reports as per HPI and Denies change in libido Neuro Denies syncope Psych Denies change in libido Endo Denies change in libido Physical Exam Const General: cooperative, healthy appearing, comfortable and no acute distress Orientation/consciousness: patient oriented x3 HEENT Face and sinus: Yes normal facial exam Mouth: moist mucous membranes Neck Neck: Yes normal visual inspection, Yes full ROM and Yes trachea midline Chest Chest palpation & inspection: normal inspection of the chest Resp Effort & Inspection: normal respiratory effort, able to speak in complete sentences and no respiratory distress GI Inspection: Yes normal to inspection Back/Spine/Pelvis Cervical Spine: normal cervical lordosis Thoracic/Lumbar Spine: thoracic and lumbar spine normal to inspection Skin General skin exam: no rashes or lesions noted Neuro General: patient oriented x3, gait normal, tone normal and moves all extremities Extrem General: Yes normal to inspection and Yes capillary refill normal Telehealth Telehealth Telehealth Platform: BiOxyDyn Location of provider rendering services: practice address Location of patient: address on file Patient Identification confirmed using: Name, : Yes Telehealth method: video Patient verbally consented to treatment: Yes Patient verbally consented to billing insurance company: Yes Patient informed of any privacy concerns related to visit: Yes Minutes spent on Phone/Video with Pt.: 15 Assessment & Plan Assessment & Plan (1) BPH w urinary obs/LUTS: Code(s): N40.1 - Benign prostatic hyperplasia with lower urinary tract symptoms; N13.8 - Other obstructive and reflux uropathy Category: Medical Plan We discussed the nature of the decision and reasonable options for performing a prostate intervention. Interventions include TURP, GreenLight laser enucleation of the prostate, GreenLight laser ablation of the prostate, transurethral incision of the prostate, and I-Tend prostate procedure. Options such as medical therapy were discussed. The relative uncertainties and benefits related to each alternate procedure were adequately discussed. General surgical risks including, but not limited to, pain, bleeding, infection, myocardial infarction, pulmonary embolus, deep vein thrombosis and cerebrovascular accident which may result in further hospitalization were discussed. Full disclosure of the procedure as well as all major risks, benefits and complications were discussed including but not limited to damage to the urethra or bladder neck, recurrent BPH, retrograde ejaculation, bladder infection, urge, de ben frequency, incomplete emptying, dysuria, remote chance of erectile dysfunction, epididymitis, and meatal stenosis. The success rate of the procedure was discussed. Success of the procedure in the short-term does not necessarily guarantee that long-term success will be maintained. Suitable follow up will need to be maintained. The patient showed understanding of discussion. An opportunity was provided for questions to be answered and wishes to proceed with the following procedure. - GreenLight laser prostate Patient Instructions: This note is constructed using voice recognition software. While every effort has been made to ensure accuracy sales order clerk errors may have been included. Imaging studies, laboratory and physical exam results were discussed and reviewed in detail. No major barriers to patient understanding were identified. An opportunity to ask questions regarding the treatment plan was provided. All questions were answered. The patient expressed understanding and agreement with the above treatment plan. The patient is aware they should contact our office by phone for worsening of their current condition or the appearance of new urologic symptoms. Compliance is encouraged with any medications and followup testing that is ordered. It is a privilege to participate in the urologic care of your patient. If you have any questions or concerns regarding treatment for the above conditions, or other urologic issues, please do not hesitate to contact me. The office telephone contact is [phone]. Sincerely, Dr Costa Whelan MD, TUCKER [facility] - Urology Compassionate Specialist Care for the Genitourinary System Coding Level of Care Code Tele Est Pt Level 3 (43588) Complex EM visit Add On G2211 Diagnoses BPH w urinary obs/LUTS N40.1; N13.8
--- OUTSIDE RECORDS SUMMARY | 2025-01-20 01:52 | XMS_ITS | Data Portability ---
Author Organization [place] - [facility], Allergy Address [address] [address] Care Team Providers Care Project Management Advisor Name Role Phone OLU DOOLEY Primary Care Provider OLU DOOLEY Referring Provider OLU DOOLEY Primary Care Provider Assessment Encounter Date Assessment Date Assessment LastModified by Organization Details LastModified Time 10/15/2024 10/15/2024 84-year-old male presents today for hearing loss. Ear exam is normal. Audiometric testing showed moderate loss in the high frequencies with borderline hearing in the speech frequencies. I counseled him that I do not typically recommend amplification at his level of hearing, but if he is motivated to try it would be reasonable to do so. [email or web address] Not available 10/15/2024 11:30:15 Plan of Treatment Reminders Order Date Submit Date Provider Last Modified By Organization Details Last Modified Time Details Appointments Hearing Test 2025 10:30A M Hearing Test Not available Not available Not available Establish ed 15 2025 10:45A M KARLA KEITA MD Not available Not available Not available Lab None recorded. Referral None recorded. Procedures None recorded. Surgeries None recorded. Imaging None recorded. Medication Orders None recorded. Patient TargetsNo targets recorded. Patient InstructionsNo instructions recorded. Reason for Referral None Reported. Results Created Date Observation Date Name Description Value Unit Range Abnormal Flag Note LastModifiedBy Organization Detail LastModifiedTime 10/21/19 24 audio gram No observ ation record ed. [email or web address] Not Available 10/02 09:23:03 10/22/19 24 04/05/2022 imagi ng/di agnos tic resul t No observ ation record ed. [email or web address] Not Available 12:06:04 10/22/19 24 04/05/2022 audio gram No observ ation record ed. [email or web address] Not Available 12:06:18 12/07/19 25 audio gram No observ ation record ed. [email or web address] Not Available 2024 17:50:41 Result Notes None recorded. 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 Postnasal drip; Note: Date Diagnosed : 08/02/2016 2:20 PM (R09.82) Not Available [facility] 4 03:00:11 Disorder of smell 299891917 Active 2016 Other disturban kenzie of smell and taste; Note: Date Diagnosed : 08/02/2016 2:16 PM (R43.8) Not Available [facility] 4 03:00:10 Disorder of taste 372842506 Active 2016 Other disturban kenzie of smell and taste; Note: Date Diagnosed : 08/02/2016 2:16 PM (R43.8) Not Available [facility] 4 03:00:10 Disorder of left ear 00123312260 90567 Active 2017 Unspecifi ed disorder of left ear; Note: Date Diagnosed : 05/19/2017 11:44 AM (H93.92) Not Available [facility] 4 03:00:10 Bleeding from nose 306762407 Active 2021 Epistaxis ; Note: Date Diagnosed : 05/02/2021 2:35 PM (R04.0) Not Available [facility] 4 03:00:09 Sensorine ural hearing loss of bilateral ears 120713318 Active 2022 Sensorine ural hearing loss, bilateral ; Note: Date Diagnosed : 04/05/2022 11:03 AM (H90.3) Not Available [facility] 4 03:00:10 Problem Notes None recorded. Procedures Surgical History Date Name Laterality Status Provider Name and Address Organization Details Recorded Time 10/15/2024 Air & Speech Audio with Tymps - 56623, 74305 & 89312 completed FLAKITO ARMENTA [place], [facility] [address] [address], [place], [address], [place] - [facility] 10/15/2024 11:12:55 10/16/2023 Air & Speech Audio with Tymps - 57124, 30436 & 63248 completed Jazmine Bernstein [place] - [facility] 10/16/2023 09:39:25 Imaging Results None recorded. Procedure Notes None recorded. Medical Equipment None Reported. Allergies No known drug allergies Medications Name Sig Start Date Stop Date Status Note LastModified by Organization Details LastModified Time celecoxib 200 mg capsule TAKE 1 CAPSULE BY MOUTH TWICE DAILY active Not Available Not Available No t Available doxycycli ne hyclate 100 mg capsule TAKE 1 CAPSULE BY MOUTH TWICE DAILY 10/15 completed Not Available Not Available Not Available Ativan 1 mg tablet 08/02 completed Medicati on ID: [id number] B rand Name: Ativan S end Method: E-Prescr ibed Sub s Allowed: subs OK Speci al Instruct ion: Take 1 tab po 30 min prior to procedur e, may repeat X 1 as needed M chaim Ortiz Name: Ativan Not Available Not Available Not Available Zyrtec 10 mg tablet Take 1 tablet every day by oral route. 10/15 completed Not Available Not Available Not Available simvastat in 40 mg tablet TAKE 1 TABLET BY MOUTH AT BEDTIME active Not Available Not Available No t Available metoprolo l tartrate 50 mg tablet TAKE 1 TABLET BY MOUTH TWICE DAILY active Not Available Not Available No t Available nitroglyc bia 0.4 mg sublingua l tablet active Not Available Not Available Not Available betametha sone dipropion ate 0.05 % topical cream APPLY TOPICALL Y TO THE AFFECTED AREAS ON CHEST AND ABDOMEN TWICE DAILY NEEDED FOR FLARES 10/15 completed Not Available Not Available Not Available omeprazol e 20 mg capsule,d elayed release TAKE 1 CAPSULE BY MOUTH EVERY DAY active Not Available Not Available No t Available alclometa sone 0.05 % topical ointment 08/02 completed Medicati on ID: [id number] D uration Value: 15 Brand Name: alclomet asone Se nd Method: E-Prescr ibed Sub s Allowed: subs OK Speci al Instruct ion: APPLY TO THE AFFECTED AREA EVERY OTHER DAY Medi cationGe nericNam e: alclomet asone Not Available Not Available Not Available azelastin e 137 mcg (0.1 %) nasal spray 10/15 completed Medicati on ID: [id number] B rand Name: azterrencesti willy Send Method: E-Prescr ibed Sub s Allowed: subs OK Speci al Instruct ion: SPRAY 2 SPRAYS INTO BOTH NOSTRILS TWICE DAILY DIRECTED Medicat ionGener icName: azelasti ne Not Available Not Available Not Available fluocinon lucero 0.05 % topical cream 08/02 completed Medicati on ID: [id number] D uration Value: 25 Brand Name: fluocino nide Sen d Method: E-Prescr ibed Sub s Allowed: subs OK Speci al Instruct ion: APPLY 1 APPLICAT ION BID TO RIGHT LEG AND LEFT UPPER ARM Medi cationGe nericNam e: fluocino nide Not Available Not Available Not Available finasteri de 5 mg tablet TAKE 1 TABLET BY MOUTH DAILY active Not Available Not Available No t Available loratadin e 10 mg tablet Take 1 tablet every day by oral route. active Not Available Not Available No t Available desonide 0.05 % topical gel APPLY TO FACE TWICE DAILY NEEDED active Not Available Not Available No t Available Vitals Date Recorded Body height Body mass index (BMI) Body weight Provider Name and Address Organization Details Last Updated DateTime 10/16/2023 165.74 cm 35 kg/m2 40689.58 g Ernestine Allen [place] - [facility] 10/16/2023 09:43:26 Date Recorded Body height Body mass index (BMI) Body weight Provider Name and Address Organization Details Last Updated DateTime 10/15/2024 165.74 cm 34.3 kg/m2 12293.21 g Ernestine Allen [place] - [facility] 10/15/2024 11:17:36 Social History None recorded. Functional Status None recorded. Mental Status None recorded. Family History Nothing Reported Notes:Problems with anesthes ia: negative. Cancer: Unspecified type of cancer - mother. Pertinent negatives: lung cancer, thyroid cancer. Ears:. Pertinent negatives: hearing loss after age 20, hearing loss before age 20. Cardiovascular:. Pertinent negatives: heart disease, hypertension. Respiratory:. Pertinent negatives: asthma. Neurologic:. Pertinent negatives: stroke. Endocrine:. Pertinent negatives: diabetes (age at onset unspecified). Hematologic/Lymphatic:. Pertinent negatives: bleeding or blood clotting problems. Medical History Condition Response Allergies/Hayfever Y Heart Attack (VT) Y Cancer Y Past Encounters Encounter ID Performer Location Encounter Start Date Encounter Closed Date Diagnosis/Indication Diagnosis SNOMED-CT Code Diagnosis ICD10 Code Diagnosis IMO Codes Diagnosis Note [id number] KARLA KEITA MD [facility] [address] [address] 10/16/2023 09:10:44 10/16/2023 10:19:29 Sensorineural hearing loss of bilateral ears 561450740 H90.3 83-year-ol d male presents today accompanie d by his due to concern for hearing loss. He seems to have difficulty understand ing at home. Denies tinnitus or dizziness. Ear exam is normal. Audiometri c testing showed moderate loss in the high frequencie s with normal hearing in the speech frequencie s. I recommende d face-to-fa ce communicat ion, captions on the TV, avoiding background noise. He is not yet a candidate for amplificat ion. Follow-up for repeat testing in a year. Audiologic al evaluation results:Ri t ear:Normal sloping to a moderate sensorineu ral hearing loss with excellent word recognitio n.Left ear:Normal sloping to a moderate sensorineu ral hearing loss with excellent word recognitio n.Asymmetr ic hearing at 3kHz of 20dB, worst in the left.Tympa nometry:Ri t Ear: Type ALeft Ear: Type A [id number] JAM ALBARRAN [facility] [address] [address] 10/16/2023 09:38:46 10/16/2023 13:44:46 Sensorineural hearing loss of bilateral ears 317854436 H90.3 Audiologic al evaluation results: Right ear: Normal sloping to a moderate sensorineu ral hearing loss with excellent word recognitio n. Left ear: Normal sloping to a moderate sensorineu ral hearing loss with excellent word recognitio n. Asymmetric hearing at 3kHz of 20dB, worst in the left. Tympanomet ry: Right Ear:Type A Left Ear:Type A [id number] KARLA KEITA MD [facility] [address] [address] 10/15/2024 10:35:54 10/15/2024 12:20:34 Sensorineural hearing loss of bilateral ears 807324130 H90.3 Audiologic al evaluation results: Right ear: Normal/bor derline normal hearing thru 2000Hz sloping to a mild SNHL with excellent word recognitio n. Left ear: Normal/bor derline normal hearing thru 2000Hz sloping to a mild-moder ate SNHL with excellent word recognitio n. Tympanomet ry: Right Ear:Type A Left Ear:Type A [id number] FLAKITO ARMENTA MA, CCC-A [facility] [address] [address] 10/15/2024 10:35:23 10/15/2024 11:28:48 Sensorineural hearing loss of bilateral ears 494810624 H90.3 Audiologic al evaluation results: Right ear: Normal/bor derline normal hearing thru 2000Hz sloping to a mild SNHL with excellent word recognitio n. Left ear: Normal/bor derline normal hearing thru 2000Hz sloping to a mild-moder ate SNHL with excellent word recognitio n. Tympanomet ry: Right Ear:Type A Left Ear:Type A Health Concerns Section Related Observation LastModified by Organization Detai ls LastModified Time None Recorded Concern Status LastModified by Organization Details LastModified Time None Recorded Advance Directives Directive None Recorded Payers Insurance Date Sequence Insurance Name Policy Number Policy Minaya Covered Member ID Minaya Member ID Guarantor Name 10/19/2024 2 [place] [employer] 33 Rico Morrow [id number] Rico Morrow 10/15/2024 1 [place]ICARE [place]: [employer] Rico Morrow [id number] Rico Morrow Notes Date Note Type Note Provider Name and Address Organization Details Recorded Time 10/16/2023 text/html ROS as noted in the [facility] 83-year-old male presents today for evaluation of hearing loss. He denies any tinnitus. He denies any dizziness. KARLA KEITA MD [address] [facility],[address], [address], [place] - [facility] 10/18/2023 10:31:41 10/15/2024 text/html Longstanding asymmetric SNHL FLAKITO ARMENTA MA, CCC-A [address] [facility],[address] [address], [place], [address], [place] - [facility] [place] 10/15/2024 11:14:56 10/15/2024 text/html ROS as noted in the [facility] 84-year-old male presents today for reevaluation of hearing loss. Seeing arthritis. Hard to uses CPAP for LAKSHMI. Has hiatal hernia on omeprazole. KARLA KEITA MD 100 [facility] [address], [place], [address], [facility] - [facility] 10/15/2024 11:30:34
--- OUTSIDE RECORDS SUMMARY | 2025-01-20 01:52 | XMS_ITS | Encounter Summary ---
Author Organization [facility] Address [address] [place] [address] Phone Care Team Providers Care Environmental Engineer Scientist Name Role Phone Ace Hinds MD Primary Care Provider Encounter Details Date Type Department Care Team (Late st Contact Info) Description 11/27/2020 Procedure Pass [facility] Admitting Dept Virtual Department [address] [place] [address] Social History Tobacco Use Types Packs/Day Years Used Date Smoking Tobacco: Former Cigarettes Pipe Smokeless Tobacco: Never Comments:quit in Alcohol Use Standard Drinks/Week Comments Yes 0 (1 standard drink = 0.6 oz pur e alcohol) 3 times a week Sex and Gender Information Value Date Recorded Sex Assigned at Not on file Legal Sex Male 9:01 AM EDT Gender Identity Not on file Sexual Orientation Not on file documented as of this encounter Plan of Treatment Not on file documented as of this encounter Visit Diagnoses Not on filedocumented in this encounter Care Teams Environmental Engineer Scientist Relationship Specialty Start Date End Date Ace Hinds MD [address] [address] PCP - General Internal Medicine 11/14/20 documented as of this encounter Additional Source Comments The information contained in this document represents components of the legal health record. It is not the complete legal health record.[facility]
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
--- OUTSIDE RECORDS SUMMARY | 2025-01-20 01:52 | XMS_ITS | Clinical Summary ---
Author Organization [facility] Address [address] [address] Phone Care Team Providers Care Airplane Inspector Name Role Phone Ace Hinds MD Primary Care Provider Allergies No known active allergies Medications fluocinonide 0.05 % cream Apply topically 2 (two) times a day. Active desonide (DESOWEN) 0.05 % ointment Apply topically 2 (two) times a day. Active loratadine (CLARITIN) 10 mg tablet Take 10 mg by mouth daily. Active cyanocobalamin, vitamin B-12, 1000 MCG tablet Take 1,000 mcg by mouth daily. Active omeprazole (PRILOSEC) 20 MG capsule Take 20 mg by mouth daily. Active finasteride (PROSCAR) 5 mg tablet Take 5 mg by mouth daily. Active nitroglycerin (NITROSTAT) 0.[address] 0.3 mg under the tongue every 5 (five) minutes as needed for chest pain. Active cholecalciferol (VITAMIN D3) 2,000 unit capsule Take by mouth daily. Active aspirin 325 MG tablet Take 325 mg by mouth every other day. Active calcium-magnesi um-zinc Tab Take 1 tablet by mouth daily. Active lorazepam (ATIVAN ORAL) Take 1 tablet by mouth every 6 (six) hours as needed. Active metoprolol succinate (TOPROL-XL) 50 MG 24 hr tablet Take 50 mg by mouth daily. Active multivitamin per tablet Take 1 tablet by mouth daily. Active ascorbic acid (ALESSANDRA-C ORAL) Take 1 tablet by mouth daily. Active docosahexaenoic acid/epa (FISH OIL ORAL) Take 1 capsule by mouth daily. Active simvastatin (ZOCOR) 40 MG tablet Take 40 mg by mouth nightly at bedtime. Active Social History Tobacco Use Types Packs/Day Years Used Date Smoking Tobacco: Former Cigarettes Pipe Smokeless Tobacco: Never Comments:quit in Alcohol Use Standard Drinks/Week Comments Yes 0 (1 standard drink = 0.6 oz pur e alcohol) 3 times a week Education Answer Date Recorded Are you interested in more education? Not on vinod e 06/29/2022 Are you concerned about learning? Not on file 06/29/2022 No 06/29/2022 No 06/29/2022 Digital Access Answer Date Recorded No 07/28/2022 No 07/28/2022 No 07/28/2022 Reliable internet access at home? Not on file 07/28/2022 Device with a working camera? Not on file Sex and Gender Information Value Date Recorded Sex Assigned at Not on file Legal Sex Male 9:01 AM EDT Gender Identity Not on file Sexual Orientation Not on file Last Filed Vital Signs Vital Sign Reading Time Taken Comments Blood Pressure 109/59 11/27/2020 9:39 AM EDT Pulse 54 11/27/2020 8:32 AM EDT Temperature 36 C (96.8 F) 11/27/2020 9:24 AM EDT Respiratory Rate 14 11/27/2020 9:39 AM EDT Oxygen Saturation 93% 11/27/2020 9:39 AM EDT Inhaled Oxygen Concentration - - Weight 96.2 kg (212 lb) 11/24/2020 9:46 AM EDT Height 170.2 cm (5' 7 ) 11/24/2020 9:46 AM EDT Body Mass Index 33.2 11/24/2020 9:46 AM EDT Plan of Treatment Health Maintenance Due Date Last Done Comments Adult Td,Tdap Booster 1940 DEPRESSION SCREENING 1953 RSV VACCINE (1 - 1-dose 75+ series) 2016 PNEUMOCOCCAL VACCINES (50+ years) (2 of 2 - PCV) 09/27/2021 09/27/2020 INFLUENZA VACCINE (#1) 2024 12/02/2020 COVID-19 VACCINE (3 - 2024-2 6 season) 2024 05/01/2020, 04/09/2020 ZOSTER VACCINES Completed 12/18/2017, 09/07/2017 HEPATITIS A VACCINES Aged Out No long er eligible based on patient's age to complete this topic HIB VACCINES Aged Out No longer eligi ble based on patient's age to complete this topic IPV VACCINES Aged Out No longer eligi ble based on patient's age to complete this topic MENINGOCOCCAL VACCINES (ACWY) Aged Out No longer eligible based on patient's age to complete this topic MENINGOCOCCAL VACCINES (B) Aged Out N o longer eligible based on patient's age to complete this topic Medical Devices Not on file Insurance MEDICARE PART A & B [facility] MEDICARE PART A & [place] [address] [place] [address] MEDICARE PART A & B MEDICARE PART A & [place] [address] [place] [address] MEDICARE PART A & B [facility] MEDICARE PART A & B Member Subscriber Plan / Payer ( fective 2007-) Name:Rico Morrow Member ID:[id number] Relation to Subscriber:Self Name:Rico Morrow Subscriber ID:[id number] Payer ID:[id number] Group ID:Not on file Type:Medicare Address: [email or web address] [address] [place] [id number] [place] [address] MEDICARE PART A & B [facility] MEDICARE PART A & B [employer] [facility] MEDICARE PART A & B [employer] [facility] Care Teams Airplane Inspector Relationship Specialty Start Date End Date Ace Hinds MD [address] [place] [address] PCP - General Internal Medicine 11/14/20 Additional Source Comments The information contained in this document represents components of the legal health record. It is not the complete legal health record.[facility]
--- OUTSIDE RECORDS SUMMARY | 2025-01-20 01:53 | XMS_ITS ---
Author Name [facility] Organization Unknown Encounters Encounter Type Encounter Reason Primary Diagnosis Location Date Ambulatory [facility] 04/03 Care Team Organization Name Specialty Phone Email Start Date End [facility] 08/03/2022 [facility] 04/16/2021 04/16/2021 [facility]
--- OUTSIDE RECORDS SUMMARY | 2025-01-20 01:53 | XMS_ITS | Clinical Summary ---
Author Organization [facility] Address [address] [place] [address] Care Team Providers Care Commodities Broker Name Role Phone Damion Garcia MD Primary Care Provider [phone] Social History Tobacco Use Types Packs/Day Years Used Date Smoking Tobacco: Never Assessed Sex and Gender Information Value Date Recorded Sex Assigned at Not on file Legal Sex Male 7:34 PM EDT Gender Identity Not on file Sexual Orientation Not on file Plan of Treatment Health Maintenance Due Date Last Done Comments DTaP/Tdap/Td (1 - Tdap) 10/08/1959 Pneumococcal 50+ years (1 of 1 - PCV) 10/08/1991 Zoster (Shingrix) (1 of 2) 10/08/1991 RSV (1 - 1-dose 75+ series) 2016 COVID-19 Vaccine ( - 2024-2 6 season) 2024 Influenza (#1) 2024 HPV Vaccine (No Doses Required) Completed Hep A Aged Out No longer eligi ble based on patient's age to complete this topic Hep B Aged Out No longer eligi ble based on patient's age to complete this topic Hib Aged Out No longer eligi ble based on patient's age to complete this topic Meningococcal ACWY Aged Out No longer eligible based on patient's age to complete this topic Zoster (Zostavax) Discontinued Care Teams Commodities Broker Relationship Specialty Start Date End Date Damion Garcia MD [address] [facility] [address] [place] [id number] PCP - General 10/07/22
== END 2025-01-19 15:15 | disposition home or self-care (01) ==
LOC: HO.HUSH 13:46
PROVIDERS: PCP Internal Medicine; Visit Provider Urology
DX: N40.1 Benign prostatic hyperplasia with lower urinary tract symptoms (principal); N13.8 Other obstructive and reflux uropathy
CPT/HCPCS: 99213; G2211